=== PATIENT | male | born 2000 | race African-American/Black ===

== ENCOUNTER 2024-03-26 14:02 | Emergency (ER) | payer SELFPAY ==
[~2024-03-26] VITALS: Ht 175.3 cm; Wt 75.0 kg
[2024-03-26 14:12] VITALS: BP 124/94; PULSE 112; RESP 16; TEMP 98.1; O2SAT 98
== END 2024-03-26 15:02 | disposition left against medical advice (07) ==
LOC: ER 14:09
DX: R10.84 Generalized abdominal pain (principal); Z53.21 Procedure and treatment not carried out due to patient leaving prior to being seen by health care provider